=== PATIENT | male | born 1940 | race Caucasian/White ===

== ENCOUNTER 2016-11-16 10:38 | Emergency (ER) | payer MEDICARE, MEDICAID ==
[~2016-11-16] VITALS: Ht 172.7 cm; Wt 82.5 kg
[~2016-11-16 10:38] MED LIST: ATENOLOL25 MG; NOR10T PO; PEPCID20 MG; PROTONIX20 MG PO; SIMVASTATIN20 M1 PO; [UNRECOGNIZED DRUG - OTHER] PO
[2016-11-16 11:20] LABS: BASOPHIL % 0.5 % (0-2); PLATELET COUNT 307 x10^3mcL (130-400)
[2016-11-16 11:21] LABS: RED CELL DISTRIBUTION WIDTH 15.4 % (11.5-14.5)
[2016-11-16 11:23] LABS: microscopic required? NO
[2016-11-16 11:36] LABS: CALCIUM 9.1 mg/dL (8.5-10.1); CARBON DIOXIDE 31.7 mmol/L (21-32); CHLORIDE SERUM 102 mmol/L (98-107); CREATININE SERUM 1.3 mg/dL (0.7-1.3); GLUCOSE SERUM 168 mg/dL (74-106); SODIUM SERUM 138 mmol/L (136-145)
[2016-11-16 11:40] LABS: ALBUMIN 3.7 g/dL (3.4-5.0); ALKALINE PHOSPHATASE 70 U/L (46-116); ALT/SGPT 15 U/L (16-63); AST/SGOT 12 U/L (15-37); BILIRUBIN TOTAL 0.5 mg/dL (0.20-1.00); LIPASE 170 IU/L (73-393); TOTAL PROTEIN, SERUM 7.3 g/dL (6.4-8.2)
[2016-11-16 11:48] LABS: urine erythrocyte NEGATIVE (NEGATIVE)
[2016-11-16 12:20] VITALS: BP 175/90
== END 2016-11-16 12:20 | disposition home or self-care (01) ==
LOC: ED 10:38
PROVIDERS: Emergency Medicine
DX: R10.13 Epigastric pain (principal); I10 Essential (primary) hypertension; E11.9 Type 2 diabetes mellitus without complications; K58.9 Irritable bowel syndrome, unspecified
CPT/HCPCS: 83880; J2270; J2405; J7030

== ENCOUNTER 2016-11-18 15:36 | Emergency (ER) | payer MEDICARE, MEDICAID ==
[2016-11-18 16:44] LABS: BASOPHIL % 0.8 % (0-2); PLATELET COUNT 299 x10^3mcL (130-400)
[2016-11-18 16:46] LABS: RED CELL DISTRIBUTION WIDTH 15.5 % (11.5-14.5)
[2016-11-18 16:50] LABS: CARBON DIOXIDE 31.6 mmol/L (21-32); CHLORIDE SERUM 101 mmol/L (98-107); CREATININE SERUM 1.2 mg/dL (0.7-1.3); GLUCOSE SERUM 110 mg/dL (74-106); POTASSIUM SERUM 4.1 mmol/L (3.5-5.1); SODIUM SERUM 137 mmol/L (136-145)
[2016-11-18 16:56] LABS: ALBUMIN 3.8 g/dL (3.4-5.0); ALKALINE PHOSPHATASE 69 U/L (46-116); ALT/SGPT 22 U/L (16-63); AMYLASE 43 U/L (25-115); AST/SGOT 12 U/L (15-37); BILIRUBIN TOTAL 0.5 mg/dL (0.20-1.00); LIPASE 164 IU/L (73-393); TOTAL PROTEIN, SERUM 7.2 g/dL (6.4-8.2)
[2016-11-18 17:30] VITALS: BP 161/81
== END 2016-11-18 17:30 | disposition home or self-care (01) ==
LOC: ED 15:36
PROVIDERS: Emergency Medicine
DX: R10.13 Epigastric pain (principal); I10 Essential (primary) hypertension; F31.9 Bipolar disorder, unspecified; Z79.1 Long term (current) use of non-steroidal anti-inflammatories (NSAID); Z79.899 Other long term (current) drug therapy
CPT/HCPCS: 83880; Q0162

== ENCOUNTER 2016-11-19 11:37 | Emergency (ER) | payer MEDICARE, MEDICAID ==
[~2016-11-19] VITALS: Ht 172.7 cm; Wt 82.7 kg
[2016-11-19 14:29] VITALS: BP 141/78
== END 2016-11-19 14:51 | disposition home or self-care (01) ==
LOC: ED 11:37
DX: K64.4 Residual hemorrhoidal skin tags (principal); K29.70 Gastritis, unspecified, without bleeding; K40.90 Unilateral inguinal hernia, without obstruction or gangrene, not specified as recurrent; K59.00 Constipation, unspecified; K21.9 Gastro-esophageal reflux disease without esophagitis; I10 Essential (primary) hypertension; E78.5 Hyperlipidemia, unspecified; Z79.899 Other long term (current) drug therapy

== ENCOUNTER 2016-11-23 22:58 | Emergency (ER) | payer MEDICARE, MEDICAID ==
[2016-11-23 23:40] LABS: microscopic required? NO
[2016-11-23 23:50] LABS: urine erythrocyte NEGATIVE (NEGATIVE)
[2016-11-23 23:52] LABS: BASOPHIL % 0.5 % (0-2); PLATELET COUNT 299 x10^3mcL (130-400)
[2016-11-23 23:56] LABS: CALCIUM 8.9 mg/dL (8.5-10.1); CARBON DIOXIDE 26.6 mmol/L (21-32); CHLORIDE SERUM 104 mmol/L (98-107); CREATININE SERUM 1.2 mg/dL (0.7-1.3); GLUCOSE SERUM 161 mg/dL (74-106); POTASSIUM SERUM 3.5 mmol/L (3.5-5.1); RED CELL DISTRIBUTION WIDTH 15.6 % (11.5-14.5); SODIUM SERUM 141 mmol/L (136-145)
[2016-11-24] LABS: ALBUMIN 3.6 g/dL (3.4-5.0); ALKALINE PHOSPHATASE 75 U/L (46-116); ALT/SGPT 17 U/L (16-63); AMYLASE 45 U/L (25-115); AST/SGOT 10 U/L (15-37); BILIRUBIN TOTAL 0.3 mg/dL (0.20-1.00); LIPASE 189 IU/L (73-393)
[2016-11-24 02:19] VITALS: BP 176/97
== END 2016-11-24 02:19 | disposition left against medical advice (07) ==
LOC: ED 22:58
PROVIDERS: Emergency Medicine
DX: R10.13 Epigastric pain (principal); K58.9 Irritable bowel syndrome, unspecified; E78.00 Pure hypercholesterolemia, unspecified; I10 Essential (primary) hypertension
CPT/HCPCS: J2270; J2405; Q0092

== ENCOUNTER 2016-11-26 10:06 | Emergency (ER) | payer MEDICARE, MEDICAID ==
[~2016-11-26] VITALS: Ht 177.8 cm; Wt 81.2 kg
[2016-11-26 13:55] VITALS: BP 150/91
== END 2016-11-26 13:55 | disposition home or self-care (01) ==
LOC: ED 10:06
DX: R10.9 Unspecified abdominal pain (principal); G89.29 Other chronic pain; K59.00 Constipation, unspecified; I10 Essential (primary) hypertension; E78.00 Pure hypercholesterolemia, unspecified; K58.9 Irritable bowel syndrome, unspecified
CPT/HCPCS: J2270; Q0162

== ENCOUNTER 2016-12-16 20:10 | Emergency (ER) | payer MEDICARE, MEDICAID ==
[2016-12-16 20:56] LABS: BASOPHIL % 0.5 % (0-2); PLATELET COUNT 385 x10^3mcL (130-400)
[2016-12-16 21:01] LABS: CALCIUM 8.8 mg/dL (8.5-10.1); CARBON DIOXIDE 27.9 mmol/L (21-32); CHLORIDE SERUM 104 mmol/L (98-107); CREATININE SERUM 1.2 mg/dL (0.7-1.3); GLUCOSE SERUM 149 mg/dL (74-106); POTASSIUM SERUM 3.6 mmol/L (3.5-5.1); SODIUM SERUM 140 mmol/L (136-145)
[2016-12-16 21:06] LABS: ALBUMIN 3.8 g/dL (3.4-5.0); ALKALINE PHOSPHATASE 87 U/L (46-116); ALT/SGPT 33 U/L (16-63); AMYLASE 63 U/L (25-115); AST/SGOT 14 U/L (15-37); BILIRUBIN TOTAL 0.3 mg/dL (0.20-1.00); LIPASE 287 IU/L (73-393); TOTAL PROTEIN, SERUM 7.2 g/dL (6.4-8.2)
[2016-12-16 22:59] VITALS: BP 168/77
== END 2016-12-16 22:59 | disposition home or self-care (01) ==
LOC: ED 20:10
PROVIDERS: Emergency Medicine
DX: R10.9 Unspecified abdominal pain (principal); E78.00 Pure hypercholesterolemia, unspecified; F41.9 Anxiety disorder, unspecified
CPT/HCPCS: 36415; J1170; J1885; Q0162

== ENCOUNTER 2017-01-17 08:11 | Emergency (ER) | payer MEDICARE, MEDICAID ==
[2017-01-17 11:03] VITALS: BP 140/64
== END 2017-01-17 11:03 | disposition home or self-care (01) ==
LOC: ED 08:11
DX: G89.29 Other chronic pain (principal); R10.13 Epigastric pain; I10 Essential (primary) hypertension; Z79.899 Other long term (current) drug therapy

== ENCOUNTER 2017-01-22 05:53 | Emergency (ER) | payer MEDICARE, MEDICAID ==
[2017-01-22 06:59] LABS: BASOPHIL % 0.6 % (0-2); PLATELET COUNT 297 x10^3mcL (130-400)
[2017-01-22 07:00] LABS: RED CELL DISTRIBUTION WIDTH 15.1 % (11.5-14.5)
[2017-01-22 07:08] LABS: CALCIUM 8.9 mg/dL (8.5-10.1); CARBON DIOXIDE 24.6 mmol/L (21-32); CHLORIDE SERUM 105 mmol/L (98-107); CREATININE SERUM 1.2 mg/dL (0.7-1.3); GLUCOSE SERUM 122 mg/dL (74-106); POTASSIUM SERUM 3.3 mmol/L (3.5-5.1); SODIUM SERUM 143 mmol/L (136-145)
[2017-01-22 07:10] LABS: ALBUMIN 3.5 g/dL (3.4-5.0); ALKALINE PHOSPHATASE 82 U/L (46-116); ALT/SGPT 28 U/L (16-63); AST/SGOT 14 U/L (15-37); BILIRUBIN TOTAL 0.63 mg/dL (0.20-1.00); LIPASE 193 IU/L (73-393); TOTAL PROTEIN, SERUM 7.1 g/dL (6.4-8.2)
[2017-01-22 09:01] VITALS: BP 133/75
== END 2017-01-22 09:01 | disposition home or self-care (01) ==
LOC: ED 05:53
PROVIDERS: Emergency Medicine
DX: G89.29 Other chronic pain (principal); R10.11 Right upper quadrant pain; R06.00 Dyspnea, unspecified; I10 Essential (primary) hypertension; F41.9 Anxiety disorder, unspecified; K59.00 Constipation, unspecified; Z79.899 Other long term (current) drug therapy; Z86.59 Personal history of other mental and behavioral disorders
CPT/HCPCS: 36415; 83880; J1885; Q0092

== ENCOUNTER 2017-01-23 07:43 | Emergency (ER) | payer MEDICARE, MEDICAID ==
[~2017-01-23] VITALS: Ht 172.7 cm; Wt 75.8 kg
[2017-01-23 09:46] VITALS: BP 164/80
== END 2017-01-23 10:31 | disposition home or self-care (01) ==
LOC: ED 07:43
DX: K29.00 Acute gastritis without bleeding (principal); I10 Essential (primary) hypertension; F99 Mental disorder, not otherwise specified; Z79.899 Other long term (current) drug therapy

== ENCOUNTER 2017-01-24 15:46 | Emergency (ER) | payer MEDICARE, MEDICAID ==
[2017-01-24 15:52] VITALS: BP 156/96
== END 2017-01-24 18:09 | disposition left against medical advice (07) ==
LOC: ED 15:46
DX: Z53.21 Procedure and treatment not carried out due to patient leaving prior to being seen by health care provider (principal)

== ENCOUNTER 2017-02-25 10:16 | Emergency (ER) | payer MEDICARE, OTHER ==
[~2017-02-25] VITALS: Ht 172.7 cm; Wt 76.2 kg
[2017-02-25 11:34] LABS: CALCIUM 8.8 mg/dL (8.5-10.1); CARBON DIOXIDE 26.3 mmol/L (21-32); CHLORIDE SERUM 102 mmol/L (98-107); CREATININE SERUM 1.2 mg/dL (0.7-1.3); GLUCOSE SERUM 106 mg/dL (74-106); POTASSIUM SERUM 3.7 mmol/L (3.5-5.1); SODIUM SERUM 137 mmol/L (136-145)
[2017-02-25 11:38] LABS: ALBUMIN 3.4 g/dL (3.4-5.0); ALKALINE PHOSPHATASE 81 U/L (46-116); ALT/SGPT 26 U/L (16-63); AMYLASE 41 U/L (25-115); AST/SGOT 14 U/L (15-37); BILIRUBIN TOTAL 0.47 mg/dL (0.20-1.00); LIPASE 151 IU/L (73-393); TOTAL PROTEIN, SERUM 6.7 g/dL (6.4-8.2)
[2017-02-25 11:42] LABS: BASOPHIL % 0.7 % (0-2); PLATELET COUNT 387 x10^3mcL (130-400); RED CELL DISTRIBUTION WIDTH 14.3 % (11.5-14.5)
[2017-02-25 12:39] LABS: microscopic required? NO
[2017-02-25 12:49] LABS: urine erythrocyte NEGATIVE (NEGATIVE)
[2017-02-25 13:03] VITALS: BP 148/95
== END 2017-02-25 13:03 | disposition home or self-care (01) ==
LOC: ED 10:16
PROVIDERS: Emergency Medicine
DX: R10.13 Epigastric pain (principal); I10 Essential (primary) hypertension; E78.00 Pure hypercholesterolemia, unspecified; Z79.899 Other long term (current) drug therapy
CPT/HCPCS: J2270; J2405; J3490; J7030; Q0092

== ENCOUNTER 2018-03-03 23:11 | Emergency (ER) | payer MEDICARE, MEDICAID ==
[~2018-03-03] VITALS: Ht 170.2 cm; Wt 93.0 kg
[2018-03-03 23:16] VITALS: Ht 170.2 cm; Wt 93.0 kg
[2018-03-03 23:57] VITALS: BP 174/101
== END 2018-03-03 23:57 | disposition home or self-care (01) ==
LOC: ED 23:11
DX: G89.29 Other chronic pain (principal); R10.32 Left lower quadrant pain; I10 Essential (primary) hypertension; E78.00 Pure hypercholesterolemia, unspecified; F31.9 Bipolar disorder, unspecified
CPT/HCPCS: J2270; Q0162

== ENCOUNTER 2018-03-05 15:32 | Emergency (ER) | payer MEDICARE, MEDICAID ==
[~2018-03-05] VITALS: Ht 170.2 cm; Wt 93.0 kg
[2018-03-05 17:00] LABS: BASOPHIL % 0.6 % (0-2); PLATELET COUNT 418 x10^3mcL (130-400); RED CELL DISTRIBUTION WIDTH 15.3 % (11.5-14.5)
[2018-03-05 17:02] LABS: CALCIUM 8.9 mg/dL (8.5-10.1); CHLORIDE SERUM 101 mmol/L (98-107); CREATININE SERUM 1.3 mg/dL (0.7-1.3); GLUCOSE SERUM 90 mg/dL (74-106); POTASSIUM SERUM 4.8 mmol/L (3.5-5.1); SODIUM SERUM 139 mmol/L (136-145)
[2018-03-05 17:07] LABS: ALBUMIN 3.6 g/dL (3.4-5.0); ALKALINE PHOSPHATASE 57 U/L (46-116); AST/SGOT 26 U/L (15-37); BILIRUBIN TOTAL 0.34 mg/dL (0.20-1.00); TOTAL PROTEIN, SERUM 7.5 g/dL (6.4-8.2)
[2018-03-05 17:26] LABS: ALT/SGPT 41 U/L (16-63)
[2018-03-05 17:59] LABS: microscopic required? NO
[2018-03-05 18:07] LABS: UA SPECIFIC GRAVITY <=1.005 (1.005-1.035); urine erythrocyte NEGATIVE (NEGATIVE)
[2018-03-05 18:14] LABS: AMPHETAMINE QUAL UR NONE DETECTED (See below)
[2018-03-06 05:43] VITALS: BP 131/79
== END 2018-03-06 05:43 ==
LOC: ED 15:32
PROVIDERS: Specialist
DX: F79 Unspecified intellectual disabilities (principal); I10 Essential (primary) hypertension; E78.00 Pure hypercholesterolemia, unspecified; F41.9 Anxiety disorder, unspecified; F31.9 Bipolar disorder, unspecified; Z60.2 Problems related to living alone
CPT/HCPCS: G0480; J1630; J2060; J3486; J7030

== ENCOUNTER 2018-03-21 17:14 | Emergency (ER) | payer MEDICARE, MEDICAID ==
[~2018-03-21] VITALS: Ht 172.7 cm; Wt 93.0 kg
[2018-03-21 17:57] VITALS: Ht 172.7 cm; Wt 93.0 kg
[2018-03-21 18:37] LABS: BASOPHIL % 0.7 % (0-2)
[2018-03-21 18:40] LABS: PLATELET COUNT 402 x10^3mcL (130-400)
[2018-03-21 19:16] LABS: CALCIUM 8.5 mg/dL (8.5-10.1); CARBON DIOXIDE 23.8 mmol/L (21-32); CHLORIDE SERUM 95 mmol/L (98-107); CREATININE SERUM 1.3 mg/dL (0.7-1.3); GLUCOSE SERUM 152 mg/dL (74-106); POTASSIUM SERUM 3.7 mmol/L (3.5-5.1); SODIUM SERUM 129 mmol/L (136-145)
[2018-03-21 19:20] LABS: ALBUMIN 3.8 g/dL (3.4-5.0); ALKALINE PHOSPHATASE 70 U/L (46-116); ALT/SGPT 43 U/L (16-63); AST/SGOT 29 U/L (15-37); BILIRUBIN TOTAL 0.5 mg/dL (0.20-1.00); LIPASE 250 IU/L (73-393)
[2018-03-21 21:07] VITALS: BP 178/100
== END 2018-03-21 21:07 | disposition home or self-care (01) ==
LOC: ED 17:14
PROVIDERS: Emergency Medicine
DX: K29.70 Gastritis, unspecified, without bleeding (principal); G89.29 Other chronic pain; E87.1 Hypo-osmolality and hyponatremia; I10 Essential (primary) hypertension; E78.00 Pure hypercholesterolemia, unspecified
CPT/HCPCS: 36415

== ENCOUNTER 2018-03-23 09:31 | Emergency (ER) | payer MEDICARE, MEDICAID ==
[~2018-03-23] VITALS: Ht 172.7 cm; Wt 93.0 kg
[2018-03-23 09:39] VITALS: Ht 172.7 cm; Wt 93.0 kg
[2018-03-23 10:24] LABS: BASOPHIL % 0.5 % (0-2); PLATELET COUNT 378 x10^3mcL (130-400)
[2018-03-23 10:33] LABS: CALCIUM 8.9 mg/dL (8.5-10.1); CARBON DIOXIDE 25.7 mmol/L (21-32); CHLORIDE SERUM 98 mmol/L (98-107); CREATININE SERUM 1.3 mg/dL (0.7-1.3); GLUCOSE SERUM 179 mg/dL (74-106); POTASSIUM SERUM 4.4 mmol/L (3.5-5.1); SODIUM SERUM 131 mmol/L (136-145)
[2018-03-23 10:38] LABS: ALBUMIN 3.6 g/dL (3.4-5.0); ALKALINE PHOSPHATASE 73 U/L (46-116); ALT/SGPT 42 U/L (16-63); AST/SGOT 22 U/L (15-37); BILIRUBIN TOTAL 0.4 mg/dL (0.20-1.00); LIPASE 158 IU/L (73-393); TOTAL PROTEIN, SERUM 7.7 g/dL (6.4-8.2)
[2018-03-23 10:39] LABS: RED CELL DISTRIBUTION WIDTH 14.9 % (11.5-14.5)
[2018-03-23 12:12] VITALS: BP 148/110
== END 2018-03-23 12:20 | disposition home or self-care (01) ==
LOC: ED 09:31
PROVIDERS: Emergency Medicine
DX: G89.29 Other chronic pain (principal); R10.13 Epigastric pain; E78.00 Pure hypercholesterolemia, unspecified; I10 Essential (primary) hypertension
CPT/HCPCS: 36415; J1200; J1885; J3490

== ENCOUNTER 2018-08-21 09:09 | Emergency (ER) | payer MEDICARE, MEDICAID ==
[~2018-08-21] VITALS: Ht 172.7 cm; Wt 94.3 kg
[2018-08-21 09:13] VITALS: Ht 172.7 cm; Wt 94.3 kg
[2018-08-21 10:21] LABS: BASOPHIL % 0.8 % (0-2); PLATELET COUNT 354 x10^3mcL (130-400)
[2018-08-21 10:25] LABS: CALCIUM 9.4 mg/dL (8.5-10.1); CARBON DIOXIDE 29.4 mmol/L (21-32); CHLORIDE SERUM 102 mmol/L (98-107); CREATININE SERUM 1.4 mg/dL (0.7-1.3); GLUCOSE SERUM 246 mg/dL (74-106); POTASSIUM SERUM 4.5 mmol/L (3.5-5.1); SODIUM SERUM 138 mmol/L (136-145)
[2018-08-21 10:41] LABS: ALBUMIN 3.9 g/dL (3.4-5.0); ALKALINE PHOSPHATASE 84 U/L (46-116); ALT/SGPT 40 U/L (16-63); AST/SGOT 24 U/L (15-37); BILIRUBIN TOTAL 0.47 mg/dL (0.20-1.00); LIPASE 177 IU/L (73-393)
[2018-08-21 10:42] LABS: CHOLESTEROL 210 mg/dL (<200); CHOLESTEROL/HDL RATIO 6.8; HDL CHOLESTEROL 31 mg/dL (40-60); TOTAL PROTEIN, SERUM 8.5 g/dL (6.4-8.2); TRIGLYCERIDES 225 mg/dL (<150)
[2018-08-21 10:45] LABS: FREE T4 1.04 ng/dL (0.76-1.46); FREE THYROXINE INDEX 3.1 ug/dL (1.4-4.5); T4(THYROXINE) 9.7 ug/dL (4.7-13.3)
[2018-08-21 11:43] LABS: T3 TOTAL 1.54 ng/mL
[2018-08-21 12:38] VITALS: BP 193/125
== END 2018-08-21 12:38 | disposition home or self-care (01) ==
LOC: ED 09:09
PROVIDERS: Specialist
DX: K29.70 Gastritis, unspecified, without bleeding (principal); I10 Essential (primary) hypertension; F31.9 Bipolar disorder, unspecified; E78.00 Pure hypercholesterolemia, unspecified; Z98.890 Other specified postprocedural states
CPT/HCPCS: 83880; 84439; J2060; J3010; J3490; J7030; Q0092

== ENCOUNTER 2019-07-04 21:53 | Emergency (ER) | payer MEDICARE, MEDICAID ==
[~2019-07-04] VITALS: Ht 172.7 cm; Wt 95.3 kg
[2019-07-04 22:00] VITALS: Ht 172.7 cm; Wt 95.3 kg
[2019-07-04 22:59] VITALS: BP 149/92
== END 2019-07-04 22:59 | disposition home or self-care (01) ==
LOC: ED 21:53
DX: L30.9 Dermatitis, unspecified (principal); I10 Essential (primary) hypertension; E78.00 Pure hypercholesterolemia, unspecified
CPT/HCPCS: J1200

== ENCOUNTER 2019-07-22 20:45 | Emergency (ER) | payer MEDICARE, MEDICAID ==
[~2019-07-22] VITALS: Ht 172.7 cm; Wt 91.2 kg
[2019-07-22 20:48] VITALS: BP 135/87; Ht 172.7 cm; Wt 91.2 kg
== END 2019-07-22 21:43 | disposition home or self-care (01) ==
LOC: ED 20:45
DX: L30.9 Dermatitis, unspecified (principal); I10 Essential (primary) hypertension; E78.00 Pure hypercholesterolemia, unspecified

== ENCOUNTER 2019-07-30 21:01 | Emergency (ER) | payer MEDICARE, MEDICAID ==
[~2019-07-30] VITALS: Ht 172.7 cm; Wt 90.5 kg
[2019-07-30 21:51] LABS: BASOPHIL % 1.1 % (0-2); PLATELET COUNT 497 x10^3mcL (130-400); RED CELL DISTRIBUTION WIDTH 16.1 % (11.5-14.5)
[2019-07-30 22:05] LABS: CARBON DIOXIDE 25.8 mmol/L (21-32); CHLORIDE SERUM 102 mmol/L (98-107); GLUCOSE SERUM 185 mg/dL (74-106); POTASSIUM SERUM 4.3 mmol/L (3.5-5.1); SODIUM SERUM 137 mmol/L (136-145)
[2019-07-30 22:06] LABS: ALBUMIN 3.2 g/dL (3.4-5.0); ALKALINE PHOSPHATASE 82 U/L (46-116); ALT/SGPT 41 U/L (16-63); AST/SGOT 9 U/L (15-37); BILIRUBIN TOTAL 0.17 mg/dL (0.20-1.00); CALCIUM 8.8 mg/dL (8.5-10.1); CREATININE SERUM 1.3 mg/dL (0.7-1.3); TOTAL PROTEIN, SERUM 7.1 g/dL (6.4-8.2)
[2019-07-30 23:45] VITALS: BP 161/106
== END 2019-07-30 23:48 | disposition home or self-care (01) ==
LOC: ED 21:01
PROVIDERS: Emergency Medicine
DX: L40.9 Psoriasis, unspecified (principal); L30.9 Dermatitis, unspecified; E11.9 Type 2 diabetes mellitus without complications; I10 Essential (primary) hypertension; E78.00 Pure hypercholesterolemia, unspecified; Z98.890 Other specified postprocedural states
CPT/HCPCS: 36415; 87804; J2930; Q0092; Q0163

== ENCOUNTER 2019-08-26 22:46 | Emergency (ER) | payer MEDICARE, MEDICAID ==
[~2019-08-26] VITALS: Ht 172.7 cm; Wt 77.1 kg
[2019-08-26 22:55] VITALS: Ht 172.7 cm; Wt 77.1 kg
[2019-08-27 00:18] VITALS: BP 162/82
== END 2019-08-27 00:18 | disposition home or self-care (01) ==
LOC: ED 22:46
DX: L30.9 Dermatitis, unspecified (principal); M54.30 Sciatica, unspecified side; I10 Essential (primary) hypertension; E78.00 Pure hypercholesterolemia, unspecified
CPT/HCPCS: J1200; J1885

== ENCOUNTER 2019-09-01 04:51 | Emergency (ER) | payer MEDICARE, MEDICAID ==
[~2019-09-01] VITALS: Ht 172.7 cm; Wt 86.2 kg
[2019-09-01 04:59] VITALS: Ht 172.7 cm; Wt 86.2 kg
[2019-09-01 06:49] VITALS: BP 145/99
== END 2019-09-01 06:49 | disposition home or self-care (01) ==
LOC: ED 04:51
DX: L30.9 Dermatitis, unspecified (principal); I10 Essential (primary) hypertension; E78.00 Pure hypercholesterolemia, unspecified

== ENCOUNTER 2019-09-08 22:39 | Emergency (ER) | payer MEDICARE, MEDICAID ==
[~2019-09-08] VITALS: Ht 172.7 cm; Wt 86.8 kg
[2019-09-08 22:45] VITALS: BP 173/98
== END 2019-09-09 00:59 | disposition left against medical advice (07) ==
LOC: ED 22:39
DX: Z53.21 Procedure and treatment not carried out due to patient leaving prior to being seen by health care provider (principal)

== ENCOUNTER 2019-09-09 01:20 | Emergency (ER) | payer MEDICARE, MEDICAID ==
[~2019-09-09] VITALS: Ht 172.7 cm; Wt 87.1 kg
[2019-09-09 01:40] VITALS: Ht 172.7 cm; Wt 87.1 kg
[2019-09-09 03:58] VITALS: BP 157/84
== END 2019-09-09 03:58 | disposition home or self-care (01) ==
LOC: ED 01:20
DX: L30.9 Dermatitis, unspecified (principal); I10 Essential (primary) hypertension; E78.00 Pure hypercholesterolemia, unspecified; Z98.890 Other specified postprocedural states
CPT/HCPCS: J1200; J1885

== ENCOUNTER 2020-03-05 13:09 | Emergency (ER) | payer MEDICARE, MEDICAID ==
[2020-03-05 15:55] VITALS: BP 157/86
== END 2020-03-05 15:55 | disposition home or self-care (01) ==
LOC: ED 13:09
DX: H61.23 Impacted cerumen, bilateral (principal); L25.9 Unspecified contact dermatitis, unspecified cause; R05 Cough; I10 Essential (primary) hypertension; E78.00 Pure hypercholesterolemia, unspecified